=== PATIENT | male | born 1975 | race Caucasian/White ===

== ENCOUNTER 2020-12-22 09:02 | Outpatient (CLI) | payer OTHER, SELFPAY ==
--- NOTE | 2021-01-11 11:26 | WPDHOMESLEEP ---
Sleep Study - Home Unattended Date of Study: 12/22/20 Ordering Provider: Merle Son MD Interpreting Provider: Misa Roe MD Home Sleep Study Type: Apnea Link Air Height: 1.8 m Weight: 127.006 kg Body Mass Index: 39.0 Neck Circumference (inches): 21 [place]: 9 Reason for Sleep Study Hypersomnia, loud snoring and witnessed apneas Sleep History Inderjit Nelson is a 45 year old man who has a 10-12 year history of gasping for breath at night and loud snoring, and the volume of his snoring has increased over the last few years. His has witnessed him having apneas during the night. She kicks him to wake him up if he does not breathe for 30-40 seconds. He breathes better on his side compared to his back. He has several family members with sleep apnea. He constantly awakens from sleep feeling short of breath, frequently awakens at night with heartburn, belching or coughing. He constantly snores loudly. He occasionally has trouble sleep with a cold. He frequently wakes up gasping for breath at night. He constantly has breathing problems at night observed by others. He rarely sweats at night. He does not notice his heart pounding or beating irregularly at night. He occasionally falls asleep during the day, rarely falls asleep involuntarily and does not fall asleep while driving. He does not have loss of muscle tone with strong emotion. She rarely has daytime difficulties due to excessive sleepiness. He does not feel paralyzed on waking or falling asleep. He frequently has vivid dreamlike scenes upon awakening or falling asleep. He does not feel afraid to go to sleep. He occasionally has nightmares, occasionally remembers his dreams. He constantly has racing thoughts. He does not feel sad or depressed. He occasionally has anxiety. He frequently has muscular tension, frequently notices parts of his body jerking and he frequently kicks at night. He frequently has crawling and aching feelings in his legs and leg pain during the night. He does not have morning jaw pain. He does not grind his teeth during sleep. He rarely is bothered by pain during the day. Occasionally is awakened by pain at night. He occasionally wakes up feeling stiff in the morning with sore achy muscles. He frequently wakes up with pain in the neck and spine. He has nightmares and fatigue. He takes antacids regularly. He has gained 5 lb in the last year. Normal bedtime is 9:30 p.m. falling asleep within 15-20 minutes, waking 4-5 times at night to urinate. On average it takes him 5-10 minutes to return to sleep. He wakes the morning at 6:00 a.m.. he does not generally take naps in the afternoon or evening. A short nap may be refreshing. He is drowsy in the morning for 1 hour longer. He feels better in the afternoon compared to other times of day. Habits: No tobacco. Caffeine 2 cups of coffee a day. No alcohol or recreational drugs. [facility] Past Medical History Medical History (Updated 01/11/21 @ 12:05 by Misa Roe MD) Essential (primary) hypertension GERD (gastroesophageal reflux disease) Mixed hyperlipidemia Morbid (severe) obesity due to excess calories Seasonal allergic rhinitis Type 2 diabetes mellitus with hyperglycemia Surgical History Surgical History (Updated 01/11/21 @ 11:37 by Misa Roe MD) History of elbow surgery Family History Family History (Updated 01/11/21 @ 12:02 by Misa Roe MD) Other Obstructive sleep apnea Social History Social History (Updated 01/11/21 @ 11:38 by Misa Roe MD) Smoking status: Never smoker Substance use: never Occupation/Education: occupation 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
[2021-01-11 11:29] VITALS: BMI 39.0
== END 2020-12-23 09:39 | disposition home or self-care (01) ==
LOC: ANHCSM 09:04
PROVIDERS: PCP Internal Medicine Critical Care Medicine; Visit Provider Internal Medicine
DX: G47.33 Obstructive sleep apnea (adult) (pediatric) (principal)
CPT/HCPCS: 95806

== ENCOUNTER → 2021-01-20 07:32 | Outpatient (CLI) | payer OTHER, SELFPAY ==
--- NOTE | 2021-02-14 20:02 | WPDSLEEPSTUD ---
Sleep Study Date of Study: 01/20/21 Ordering Provider: Merle Son MD Interpreting Physician: Misa Roe MD Sleep Study Type: CPAP Titration Height: 1.8 m Weight: 127.913 kg Body Mass Index: 39.3 Neck Circumference (inches): 21 [place]: 13 Reason for Sleep Study * Home sleep test December 22, 2020 with severe mixed sleep apnea with an apnea-hypopnea index of 96, desaturation to 77% and frequent snoring; obstructive index is 51.3, central index is 8.3 and the mixed index is 1.5. The patient had 84% of the apneas scored as obstructive, 14% central and 3% mixed, desaturation to 77%, 87 minutes spent below 88% and majority of the test accompanied with snoring. This patient has profound hypoxemia needs to have a CPAP titration in the sleep lab Sleep History Inderjit Nelson is a 45 year old man who has a 10-12 year history of gasping for breath at night and loud snoring, and the volume of his snoring has increased over the last few years. His has witnessed him having apneas during the night. She kicks him to wake him up if he does not breathe for 30-40 seconds. He breathes better on his side compared to his back. He has several family members with sleep apnea. He constantly awakens from sleep feeling short of breath, frequently awakens at night with heartburn, belching or coughing. He constantly snores loudly. He occasionally has trouble sleep with a cold. He frequently wakes up gasping for breath at night. He constantly has breathing problems at night observed by others. He rarely sweats at night. He does not notice his heart pounding or beating irregularly at night. He occasionally falls asleep during the day, rarely falls asleep involuntarily and does not fall asleep while driving. He does not have loss of muscle tone with strong emotion. She rarely has daytime difficulties due to excessive sleepiness. He does not feel paralyzed on waking or falling asleep. He frequently has vivid dreamlike scenes upon awakening or falling asleep. He does not feel afraid to go to sleep. He occasionally has nightmares, occasionally remembers his dreams. He constantly has racing thoughts. He does not feel sad or depressed. He occasionally has anxiety. He frequently has muscular tension, frequently notices parts of his body jerking and he frequently kicks at night. He frequently has crawling and aching feelings in his legs and leg pain during the night. He does not have morning jaw pain. He does not grind his teeth during sleep. He rarely is bothered by pain during the day. Occasionally is awakened by pain at night. He occasionally wakes up feeling stiff in the morning with sore achy muscles. He frequently wakes up with pain in the neck and spine. He has nightmares and fatigue. He takes antacids regularly. He has gained 5 lb in the last year. Normal bedtime is 9:30 p.m. falling asleep within 15-20 minutes, waking 4-5 times at night to urinate. On average it takes him 5-10 minutes to return to sleep. He wakes the morning at 6:00 a.m.. he does not generally take naps in the afternoon or evening. A short nap may be refreshing. He is drowsy in the morning for 1 hour longer. He feels better in the afternoon compared to other times of day. Habits: No tobacco. Caffeine 2 cups of coffee a day. No alcohol or recreational drugs. [facility] Past Medical History Medical History (Updated 01/11/21 @ 12:05 by Misa Roe MD) Essential (primary) hypertension GERD (gastroesophageal reflux disease) Mixed hyperlipidemia Morbid (severe) obesity due to excess calories Seasonal allergic rhinitis Type 2 diabetes mellitus with hyperglycemia Surgical History Surgical History (Updated 01/11/21 @ 11:37 by Misa Roe MD) History of elbow surgery Family History Family History (Updated 01/11/21 @ 12:02 by Misa Roe MD) Other Obstructive sleep apnea Social History Social History (Updated 01/11/21 @ 11:38 by Misa Marquis
[2021-02-14 22:50] VITALS: BMI 39.3
== END ==
PROVIDERS: PCP Internal Medicine Critical Care Medicine; Visit Provider Internal Medicine Critical Care Medicine
DX: G47.33 Obstructive sleep apnea (adult) (pediatric) (principal)
CPT/HCPCS: 95811

== ENCOUNTER 2021-06-14 11:58 | Outpatient (CLI) | payer OTHER, SELFPAY ==
[2021-06-14 13:07] LABS: SARS-CoV-2 Ag Positive (Negative)
== END 2021-06-14 11:59 | disposition home or self-care (01) ==
LOC: CHSLAB 12:00
PROVIDERS: PCP Internal Medicine; Visit Provider Internal Medicine
DX: U07.1 COVID-19 (principal); J06.9 Acute upper respiratory infection, unspecified
CPT/HCPCS: 87426; C9803

== ENCOUNTER 2023-01-26 00:44 | Day surgery (SDC) | payer BC, SELFPAY ==
[2023-01-23 08:57] VITALS: BMI 37.8
--- NOTE | 2023-01-26 08:27 | SUR.PREOP ---
Blood sugar is 148 per continuous glucose monitor.
[2023-01-26 08:29] VITALS: BP 117/68; PULSE 80; RESP 20; TEMP 36.2; O2SAT 99
[2023-01-26] MEDS: LACTATED RINGERS 1,000 ML 150 ML IV CONT (08:40)
--- NOTE | 2023-01-26 08:45 | WPDANESEPPF ---
Anes - Initial Pre Proc Eval Procedure: Operation Date: 01/26/23 09:00 Proposed Procedures p Colonoscopy - Tavo Mcdonald DO Date/Time: 01/26/23 08:45 Surgeon: Tavo Mcdonald DO Pre Op Diagnosis: positive cologuard Patient Data Age: 47 Gender: M Height: 1.8 m Weight: 123.4 kg Last Vital Signs Temp 36.2 C L 01/26/23 08:29 Pulse 80 01/26/23 08:29 Resp 20 01/26/23 08:29 BP 117/68 01/26/23 08:29 Pulse Ox 99 01/26/23 08:29 O2 Del Method Room Air 01/26/23 08:29 Allergies Allergy/AdvReac Type Severity Reaction Status Date / Time No Known Allergies Allergy Verified 01/26/23 08:28 Home Medications Medication Instructions Recorded Confirmed Type fenofibrate 160 mg tablet 160 mg PO DAILY 01/23/23 01/23/23 History insulin glargine-yfgn 100 unit/mL 110 unit subcut DAILY 01/23/23 01/23/23 History (3 mL) subcutaneous pen lisinopril 30 mg tablet 30 mg PO DAILY 01/23/23 01/23/23 History metformin 500 mg tablet,extended 500 mg PO DAILY 01/23/23 01/23/23 History release 24 hr tirzepatide 10 mg/0.5 mL 10 mg subcut WEEKLY 01/23/23 01/23/23 History subcutaneous pen injector (Mounjaro) Patient hx anesthesia problems: none Family hx anesthesia problems: none Results Review: All pre-operative results and documents have been reviewed as part of the pre-operative evaluation. 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 Informed Consent: The patient's anesthetic plan and its attendant risks and benefits were discussed with the patient/family/POA. Questions were solicited and answers provided to the satisfaction of the patient/family/POA.
--- NOTE | 2023-01-26 08:55 | PM.IMHP ---
H&P: HPI History of Present Illness Date/Time: 01/26/23 08:55 Chief Complaint: Positive Cologuard Narrative: This is a 47-year-old man who presents for colonoscopy. He recently had a Cologuard test that was positive. He denies any hematochezia or melena. He denies any family history of colon cancer. He has never had a colonoscopy before. Review of Systems Review of Systems: All systems reviewed & are unremarkable except as noted in HPI and below Constitutional: Constitutional: Denies chills, Denies fever(s), Denies headache(s) and Denies weight loss Eyes: Eyes: Denies change in vision ENT: Denies dizziness, Denies headache(s), Denies neck mass and Denies throat swelling Cardiovascular: Cardiovascular: Denies chest pain, Denies lightheadedness and Denies dyspnea Respiratory: Respiratory: Denies cough, Denies dyspnea and Denies wheezing Gastrointestinal: Gastrointestinal: Denies abdominal pain, Denies change in bowel habits, Denies nausea and Denies vomiting Genitourinary: Genitourinary: Denies hematuria and Denies dysuria Musculoskeletal: Musculoskeletal: Reports as per HPI Integumentary/Breasts: Skin/Breast: Reports as per HPI Neurologic: Denies dizziness and Denies headache(s) Allergic/Immunologic: Allergic/Immunologic: Denies throat swelling and Denies wheezing PMFSH Past Medical History Medical History Essential (primary) hypertension GERD (gastroesophageal reflux disease) Mixed hyperlipidemia Morbid (severe) obesity due to excess calories Seasonal allergic rhinitis Type 2 diabetes mellitus with hyperglycemia Surgical History Surgical History History of elbow surgery Family History Family History Other Obstructive sleep apnea Social History Social History Smoking status: Never smoker Alcohol intake: never Substance use: never Substance use type: does not use Living arrangements: with family Occupation/Education: occupation 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 Spiritual care concerns: No Meds Home Medications and Allergies Home Medications Medication Instructions Recorded Confirmed Type fenofibrate 160 mg tablet 160 mg PO DAILY 01/23/23 01/23/23 History insulin glargine-yfgn 100 unit/mL 110 unit subcut DAILY 01/23/23 01/23/23 History (3 mL) subcutaneous pen lisinopril 30 mg tablet 30 mg PO DAILY 01/23/23 01/23/23 History metformin 500 mg tablet,extended 500 mg PO DAILY 01/23/23 01/23/23 History release 24 hr tirzepatide 10 mg/0.5 mL 10 mg subcut WEEKLY 01/23/23 01/23/23 History subcutaneous pen injector (Mounjaro) Allergies Allergy/AdvReac Type Severity Reaction Status Date / Time No Known Allergies Allergy Verified 01/26/23 08:28 Vital Signs Vital Signs - 24 hr 01/26/23 08:29 Temperature 36.2 C L Pulse Rate 80 Respiratory Rate 20 Blood Pressure 117/68 Pulse Oximetry 99 Oxygen Delivery Room Air Exam Const: General: no acute distress and alert Orientation/consciousness: patient oriented x3 HENMT: Head: normocephalic and atraumatic Ears: hearing grossly normal bilaterally Face/Nose/Sinus: Normal nares present Mouth: Yes Normal oral and palatal mucosa present Eyes: Periorbital: periorbital findings normal Sclera: sclerae normal EOM: EOMs intact bilaterally Neck: Neck: normal visual inspection, no lymphadenopathy and trachea midline Chest: Chest palpation & inspection: normal inspection of the chest Resp: Effort & Inspection: normal respiratory effort Auscultation: clear to auscultation bilaterally Cardio: Jugular venous distension: no JVD Rate: regular rate Rhythm: regular rhythm Heart sounds: S1 normal heart sound present and S2 normal heart sound present
[2023-01-26 09:28] VITALS: BP 96/55; PULSE 89; RESP 16; O2SAT 97
[2023-01-26 09:38] VITALS: BP 108/67; PULSE 86; RESP 18; O2SAT 98
[2023-01-26 09:48] VITALS: BP 111/78; PULSE 81; RESP 17; O2SAT 98
--- NOTE | 2023-01-26 09:57 | SUR.PHASEII ---
Pt blood sugar 125 post operatively per pt Dexcom.
== END 2023-01-26 09:55 | disposition home or self-care (01) ==
PROVIDERS: PCP Internal Medicine; Visit Provider Surgery
PROC: 0DJD8ZZ Inspection of Lower Intestinal Tract, Via Natural or Artificial Opening Endoscopic (ICD-10-PCS; CPT 45378; principal; 2023-01-26 09:00)
DX: R19.5 Other fecal abnormalities (principal); K63.5 Polyp of colon; K57.30 Diverticulosis of large intestine without perforation or abscess without bleeding; I10 Essential (primary) hypertension; K21.9 Gastro-esophageal reflux disease without esophagitis; E78.2 Mixed hyperlipidemia; E11.65 Type 2 diabetes mellitus with hyperglycemia; Z79.85 Long-term (current) use of injectable non-insulin antidiabetic drugs; Z79.84 Long term (current) use of oral hypoglycemic drugs; Z79.4 Long term (current) use of insulin; E66.9 Obesity, unspecified; Z68.37 Body mass index [BMI] 37.0-37.9, adult
CPT/HCPCS: 45385; 88305; J2704; J7120